=== PATIENT | female | born 2000 | race Caucasian/White ===

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

== ENCOUNTER 2025-02-17 22:57 | Emergency (ER) | payer MEDICAID ==
[~2025-02-17] VITALS: Ht 157.5 cm; Wt 70.7 kg
--- NOTE | 2025-02-17 23:58 | RADIOLOGY REPORT ---
CLINICAL INDICATION: ANKLE PAIN TECHNIQUE: DI ANKLE, COMPLETE(3VW MIN) Comparison: None FINDINGS/IMPRESSION: : There is no evidence of acute fracture or dislocation. Soft tissues are unremarkable.
--- NOTE | 2025-02-18 00:27 | Physician Documentation ---
History of Present Illness ~ Chief Complaint: Ankle pain Stated Complaint: RIGHT ANKLE SWELLING Time Seen by MD: 00:38 HPI This is a 24-year-old female who presents with right ankle pain and swelling for the past two days, patient reports no known injury. Reports the swelling has improved though ankle is still painful. Medication Reconciliation Allergies: Coded Allergies: No Known Allergies (Unverified , 06/04/17) Scheduled Ibuprofen (Ibuprofen), 1 TAB PO Q8H Past Medical History Past Medical History: No Pertinent History Past Surgical History: noncontributory Alcohol Use: None Drug Use: none Lives with: Family Lives In: Home Review of Systems ROS As stated above in the HPI, otherwise all systems are reviewed and negative. Physical Exam Vital Signs: Temperature: 98.6, Source: Temporal, Heart Rate: 87, Respiratory Rate: 15, BP: 112/65, Pulse Oximetry: 98, Weight: 70.650 Physical Exam VITALS: Reviewed and as above. GENERAL: Alert, nontoxic appearing, no apparent distress. RESPIRATORY: No increased work of breathing, no respiratory distress, speaking in full clear sentences CV: Brisk capillary refill to right foot, pedal pulse intact in right foot MUSCULOSKELETAL: Minimal swelling to right ankle as compared to left, tender to palpation to the medial aspect of right ankle, range of motion intact to right toes SKIN: No ecchymosis or erythema to right foot or ankle NEURO: Sensation intact to right foot and toes Progress Results/Orders Results/Orders Orders - JESSICA WALTON Ortho Orders (02/18/25 ) Completed Orders - JESSICA WALTON Ibuprofen Tablet (Motrin Tablet) (02/18/25 00:40) Vital Signs 02/17/25 02/18/25 23:29 02:08 Temp 98.6 98.1 Pulse 87 88 Resp 15 16 B/P (MAP) 112/65 122/82 Pulse Ox 98 99 EKG/XRAY/CT/US/VASC/MRI Bone/Soft Tissue X-Ray (Ext.) : Additional Comment Exam: ANKLE, COMPLETE(3VW MIN) CLINICAL INDICATION: ANKLE PAIN TECHNIQUE: DI ANKLE, COMPLETE(3VW MIN) Comparison: None FINDINGS/IMPRESSION: : There is no evidence of acute fracture or dislocation. Soft tissues are unremarkable. Electronically Signed by:REBECCA LACKEY MD Date & Time: 02/17/252355 Dictated by: REBECCA LACKEY MD Dictation date and time: 02/17/252355 I have reviewed and agree with the radiology report. I have reviewed and interpreted the imaging as: No fracture or dislocation Medical Decision Making Findings MSE performed in triage and patient returned to ED lobby by nursing staff to await available ED room This 24-year-old female presented with right ankle pain and swelling for the past two days without known injury, reassuring that patient reports decreasing swelling. On exam tenderness was mild, there was minimal swelling and no erythema or ecchymosis, and the foot was neurovascularly intact. Imaging did not demonstrate fracture or dislocation. Patient is otherwise well appearing and will be placed on crutches to rest the affected foot, plan for rest, ice, compression, and elevation to treat injury. Patient provided home care, instructions, follow instructions, and return to care precautions achiever to understanding of. General Diff Dx:Considerations: Include: Abrasion, Fracture, Laceration, Neurovascular injury, Sprain Ankle Diff Dx:Considerations: Include: Arthritis, DJD, Gout, Sprain, Septic Departure Time of Disposition: 00:37 Disposition: 01 HOME / SELF CARE / HOMELESS Impression: Primary Impression: Right ankle pain Qualified Codes: M25.571 - Pain in right ankle and joints of right foot Condition: Improved Discharge Instructions: Ankle Pain, RICE Therapy for Routine Care of Injuries Additional Instructions: Please use the provided crutches to rest your foot. Please see the attached home care instructions for rest, ice, compression, and elevation to treat your injury. Please follow up with your primary care provider in the next few days. Please return to the emergency department for any new or worsening concerning symptoms. Referrals: NO PRIMARY CARE PROVIDER (PCP) Prescriptions Ibuprofen (Ibuprofen) 800 Mg Tablet 1 TAB PO Q8H for pain for 10 Days, #30 TAB 0 Refills Prov: JESSICA WALTON 02/18/25 Education Educated: Patient Educated regarding: diagnosis, treatment, prognosis, need for follow up Signature Scribe Signature: No Scribe Attestation: The note accurately reflects work and decisions made by me.MARILEE Maza 02/20/25 16:24 JESSICA WALTON Feb 18, 2025 00:27
[2025-02-18] MEDS ORDERED: IBUP-1986 PO (00:38)
[2025-02-18] MEDS: ibuprofen tablet 400 MG TABLET PO ONE (00:40)
[2025-02-18 02:08] VITALS: BP 122/82; PULSE 88; RESP 16; TEMP 98.1; O2SAT 99
== END 2025-02-18 02:13 | disposition home or self-care (01) ==
LOC: ER 22:58
DX: M25.571 Pain in right ankle and joints of right foot (principal); M79.89 Other specified soft tissue disorders; Z79.899 Other long term (current) drug therapy
CPT/HCPCS: 73610; 99283